=== PATIENT | female | born 1960 | race Asian ===

== ENCOUNTER 2017-12-19 00:24 | Emergency (ER) | payer OTHER ==
[~2017-12-19] VITALS: Ht 160 cm; Wt 67.6 kg
[2017-12-19 01:17] VITALS: BP 147/86; TEMP 98.2
== END 2017-12-19 01:18 | disposition home or self-care (01) ==
LOC: ED 00:24
PROC: 3E1CX8Z Irrigation of Eye using Irrigating Substance (ICD-10-PCS; principal; 2017-12-19)
DX: S05.02XA Injury of conjunctiva and corneal abrasion without foreign body, left eye, initial encounter (principal); H11.422 Conjunctival edema, left eye
CPT/HCPCS: 99283

== ENCOUNTER 2018-04-05 16:12 | Outpatient (CLI) | payer OTHER | END 2018-04-05 16:15 | disposition short-term general hospital (02) | LOC: AMB 16:12 | DX: R06.09 Other forms of dyspnea (principal) | CPT/HCPCS: A0425; A0429 ==

== ENCOUNTER 2018-04-05 16:21 | Emergency (ER) | payer OTHER ==
[~2018-04-05] VITALS: Ht 160 cm; Wt 67.6 kg
[2018-04-05 17:00] LABS: PLATELET COUNT 269 K/uL (152-353)
[2018-04-05 17:07] LABS: POTASSIUM 3.1 mmol/L (3.6-5.2)
[2018-04-05 18:28] VITALS: BP 131/64; TEMP 97.5
== END 2018-04-05 18:20 | disposition home or self-care (01) ==
LOC: ED 16:21
PROVIDERS: Family Medicine
DX: J45.909 Unspecified asthma, uncomplicated (principal); R05 Cough
CPT/HCPCS: 36415; 80053; 85027; 87502; 87651; 94664; 96374; 99284; J2930